=== PATIENT | female | born 1975 | race Caucasian/White ===

== ENCOUNTER 2023-06-10 09:39 | Day surgery (SDC) | payer MEDICAID ==
[2023-06-09 09:32] LABS: BASOPHILS % (AUTO) 0.4 % (0.0-2.0); EOSINOPHILS # (AUTO) 0.1 K/uL (0-0.4); EOSINOPHILS % (AUTO) 1.8 % (0.0-4.0); HEMATOCRIT 37.4 % (36-48); HEMOGLOBIN 12.5 g/dL (12.0-16.0); LYMPHOCYTES % (AUTO) 29.4 % (20.5-51.1); MEAN CORPUSCULAR HEMOGLOBIN 30 pg (27-31); MEAN CORPUSCULAR HGB CONC 34 g/dL (33-37); MEAN CORPUSCULAR VOLUME 88.8 fL (80-94); MONOCYTES # (AUTO) 0.6 K/uL (0.8-1.0); MONOCYTES % (AUTO) 8.5 % (1.7-9.3); NEUTROPHILS % (AUTO) 59.9 % (42.2-75.2); PLATELET COUNT (AUTO) 348 K/uL (140-450); RED BLOOD CELL COUNT(AUTO) 4.21 MIL/uL (4.20-5.40); RED CELL DISTRIBUTION WIDTH 13.6 % (11.6-13.7); WHITE BLOOD COUNT (AUTO) 6.8 K/uL (4.8-10.8)
[2023-06-09 09:49] LABS: ALBUMIN 3.6 g/dL (3.4-5.0); ANION GAP 12.2 (8-16); CARBON DIOXIDE 28.1 mmol/L (21-32); CREATININE 0.7 mg/dL (0.6-1.3); POTASSIUM 4.3 mmol/L (3.5-5.1); TOTAL BILIRUBIN 0.4 mg/dL (0.0-1.0)
[~2023-06-10] VITALS: Ht 160 cm; Wt 86.2 kg
[2023-06-10] MEDS ORDERED: PROPOFOL 200 MG/20 ML VIAL IV ONE (12:30)
[2023-06-10] MEDS ORDERED: fentaNYL citrate 0.05 MG/ML VIAL ONE (12:30)
[2023-06-10] MEDS ORDERED: MIDAZOLAM 2 MG/2 ML VIAL ONE (12:31)
[2023-06-10] MEDS ORDERED: ceFAZolin 1,000 MG VIAL ONE (12:32)
[2023-06-10] MEDS ORDERED: LIDOCAINE/EPI MPF 1%1:200000 30 ML VIAL INJ ONE (12:32)
[2023-06-10] MEDS ORDERED: BUPIVACAINE-MPF 0.25% 30 ML VIAL INJ ONE (12:32)
[2023-06-10] MEDS ORDERED: SEVOFLURANE 250 ML BTL INH ONE (12:33)
[2023-06-10] MEDS ORDERED: ePHEDrine 50 MG/ML VIAL ONE (12:52)
[2023-06-10] MEDS ORDERED: METOCLOPRAMIDE 10 MG/2 ML INJ VIAL ONE (13:00)
[2023-06-10] MEDS ORDERED: DEXAMETHASONE 4 MG/ML VIAL ONE (13:00)
[2023-06-10] MEDS ORDERED: ONDANSETRON 4 MG/2 ML VIAL ONE (13:00)
[2023-06-10] MEDS ORDERED: GLYCOPYRROLATE 0.2 MG/ML VIAL ONE (13:01)
[2023-06-10] MEDS ORDERED: KETOROLAC 30 MG/ML VIAL ONE (13:36)
[2023-06-10] MEDS ORDERED: ONDANSETRON 4 MG/2 ML VIAL IV PRN (14:00)
[2023-06-10] MEDS ORDERED: MORPHINE SULFATE 2 MG/ML SYR IVP PRN (14:00)
[2023-06-10] MEDS ORDERED: MORPHINE SULFATE 4 MG/ML SYR IV PRN (14:00)
[2023-06-10] MEDS ORDERED: HYDROmorphone 1 MG/ML AMP IVP PRN ×2 (14:00→14:40)
[2023-06-10] MEDS ORDERED: HYDR-5191 PO ×2 (14:09→14:20)
[2023-06-10] MEDS ORDERED: ONDANSETRON 4 MG/2 ML VIAL IVP PRN (14:40)
== END 2023-06-10 15:30 | disposition home or self-care (01) ==
LOC: MMU 09:39 → MDS 09:39
PROVIDERS: ATTEND Surgery
DX: C50.911 Malignant neoplasm of unspecified site of right female breast (principal)
CPT/HCPCS: 36415; 36561; 71045; 76937; 77001; 80053; 81025; 85025; 86886; 86900; 86901; C1788; J0690; J1100; J1644; J1885; J2001; J2250; J2405; J2704; J2765; J3010; J3490; J7030; J7060; J7120; Q0092

== ENCOUNTER 2024-08-17 09:40 | Day surgery (SDC) | payer OTHER ==
[~2024-08-17] VITALS: Ht 170.2 cm; Wt 87.1 kg
[2024-08-17] MEDS ORDERED: MIDAZOLAM 2 MG/2 ML VIAL ONE (11:06)
[2024-08-17] MEDS ORDERED: fentaNYL citrate 0.05 MG/ML VIAL ONE (11:06)
[2024-08-17] MEDS ORDERED: LACTATED RINGERS 1,000 ML IV SCH (11:35)
[2024-08-17] MEDS ORDERED: HYDROmorphone 1 MG/ML AMP IVP PRN (11:35)
[2024-08-17] MEDS ORDERED: diphenhydrAMINE 50 MG/ML VIAL IVP PRN (11:35)
[2024-08-17] MEDS ORDERED: MEPERIDINE 25 MG/ML SYR IVP PRN (11:35)
[2024-08-17] MEDS ORDERED: ONDANSETRON 4 MG/2 ML VIAL IVP PRN (11:35)
[2024-08-17] MEDS: ceFAZolin 2,000 MG VIAL ONE (12:10)
[2024-08-17] MEDS ORDERED: PROPOFOL 200 MG/20 ML VIAL IV ONE (12:20)
[2024-08-17] MEDS: BUPIVACAINE-MPF 0.25% 30 ML VIAL INJ ONE (12:25)
[2024-08-17] MEDS: LIDOCAINE/EPI 1% 1:100000 20 ML VIAL INJ ONE (12:25)
[2024-08-17] MEDS ORDERED: [UNRECOGNIZED DRUG - CODE] PO (12:29)
[2024-08-17] MEDS ORDERED: ONDANSETRON 4 MG/2 ML VIAL IV PRN (12:35)
[2024-08-17] MEDS ORDERED: MORPHINE SULFATE 4 MG/ML SYR IV PRN (12:35)
[2024-08-17] MEDS ORDERED: MORPHINE SULFATE 2 MG/ML SYR IVP PRN (12:35)
[2024-08-17] MEDS ORDERED: HYDROcodone/APAP 5/325 MG 1 TAB TAB PO PRN (12:35)
== END 2024-08-17 13:50 | disposition home or self-care (01) ==
LOC: MDS 09:40 → MMU 09:43 → MDS 13:50
PROVIDERS: ATTEND Surgery
DX: C50.911 Malignant neoplasm of unspecified site of right female breast (principal); Z90.710 Acquired absence of both cervix and uterus; Z79.899 Other long term (current) drug therapy
CPT/HCPCS: 36590; 87070; 88300; J2001; J2250; J2704; J3010; J3490; 87075; 87205